=== PATIENT | male | born 1970 ===

== ENCOUNTER 2017-04-06 09:08 | Emergency (ER) | payer SELFPAY ==
[2017-04-06 09:16] VITALS: BP 186/143
--- NOTE | 2017-04-06 09:25 | Emergency Department Report ---
Chief Complaint: Dizziness Stated Complaint: DIZZINESS/ MINO Time Seen by Provider: 04/06/17 09:08 - HPI History of Present Illness: to er w severe long just left [facility] ER w same had iv and got meds they dc him bp elevated w long now see vs ct scan normal per pt at [facility] no n/v no focal neuro def does have hx of htn no med record w him will request to back htn urgency - ROS Review of Systems: see above - Exam Vital Signs: Vital Signs 04/06/17 09:12 Temperature 97.6 F Pulse Rate 81 Respiratory 17 Rate Blood Pressure 186/143 O2 Sat by Pulse 99 Oximetry Physical Exam: see above MSE screening note: Focused history and physical exam performed. Due to findings the following was ordered: ED Disposition for MSE Condition: Stable
[2017-04-06 09:33] LABS: Eosinophils % (Auto) 5.6 % (0.0-4.3); Hematocrit 40.5 % (30.3-42.9); Hemoglobin 12.5 gm/dl (10.1-14.3); Mean Corpuscular HGB Conc 31 % (30-34); Platelet Count 186 K/mm3 (140-440); Red Blood Count 6.16 M/mm3 (3.65-5.03); Red Cell Distribution Width 15.9 % (13.2-15.2); White Blood Count 6.4 K/mm3 (4.5-11.0)
[2017-04-06 09:41] LABS: Mean Corpuscular Hemoglobin 20 pg (28-32); Mean Corpuscular Volume 66 fl (79-97)
[2017-04-06 09:49] LABS: Anion Gap 19 mmol/L; BUN/Creatinine Ratio 19.09; Blood Urea Nitrogen 21 mg/dL (7-17); Carbon Dioxide 25 mmol/L (22-30); Chloride 98.4 mmol/L (98-107); Glucose 113 mg/dL (65-100); Potassium 3.9 mmol/L (3.6-5.0); Sodium 138 mmol/L (137-145)
--- NOTE | 2017-04-06 09:55 | Cat Scan Report ---
CT scan of head without contrast: History: Severe headache hypertension. Findings: Ventricles are normal in size and midline in location. No evidence of acute ischemia, hemorrhage or mass. No extra axial fluid collection. Normal brainstem and cerebellum. Normal sinuses and mastoid air cells. Impression: No acute intracranial abnormality.
--- NOTE | 2017-04-06 10:02 | XRay Report ---
CHEST 2 VIEWS INDICATION: Lightheadedness, dizziness. COMPARISON: None similar. FINDINGS: PA and lateral chest radiographs demonstrate top normal cardiomediastinal silhouette and clear lungs, given the inspiration. Right hemidiaphragm slightly elevated. Unremarkable bones. CONCLUSION: No acute disease. Thank you for the opportunity to participate in this patient's care.
[2017-04-06 10:20] LABS: Alanine Aminotransferase 20 units/L (7-56); Albumin 4.3 g/dL (3.9-5); Albumin/Globulin Ratio 1.6 %; Alkaline Phosphatase 50 units/L (35-129)
[2017-04-06 10:23] LABS: Bilirubin,Direct < 0.2 mg/dL (0-0.2); Bilirubin,Indirect 0.4 mg/dL
[2017-04-06 10:26] LABS: Bilirubin,Urine NEG (Negative); Blood,Urine NEG (Negative); Ketones,Urine NEG (Negative); Leukocyte Esterase,Urine NEG (Negative); Nitrite,Urine NEG (Negative); Protein,Urine <15 mg/dL mg/dL (Negative); RBC,Urine < 1.0 /HPF (0.0-6.0); Urobilinogen,Urine < 2.0 mg/dL (<2.0)
== END 2017-04-06 15:25 | disposition left against medical advice (07) ==
LOC: EDSEX → ED 09:08
DX: R42 Dizziness and giddiness (principal); R06.00 Dyspnea, unspecified; Z53.21 Procedure and treatment not carried out due to patient leaving prior to being seen by health care provider
CPT/HCPCS: 36415; 70450; 71020; 80048; 80074; 81001; 82550; 82553; 84484; 85025